=== PATIENT | female | born 1970 | race Caucasian/White ===

== ENCOUNTER 2025-05-27 16:04 | Emergency (ER) | payer OTHER ==
[~2025-05-27] VITALS: Ht 165.1 cm; Wt 64.4 kg
--- OUTSIDE RECORDS SUMMARY | 2025-05-27 16:30 | XMS ---
PreManage Notification: CEASAR QUINTANA Security Rn Building Events No recent Security Events currently on file CRITERIA MET - REBECCAP CARE PROVIDERS KHADAR PAIZ Nurse Practitioner: Family Current PHONE: [phone] [place] has no Care Guidelines for this patient. [place] VISIT COUNT (12 MO.) 1 TOAN Costello TOTAL 1 NOTE: Visits indicate total known visits. ED/UCC VISIT TRACKING (12 MO.) 05/27/2025 16:05 TOAN Fernandez OR TYPE: Emergency COMPLAINT: - HEADACHE INPATIENT VISIT TRACKING (12 MO.) No inpatient visits to display in this time frame [email or web address]
[2025-05-27] MEDS ORDERED: CLONAZEPAM0.5 MG PO (17:40)
[2025-05-27] MEDS ORDERED: BUSPIRONE HCL15 MG PO (17:40)
[2025-05-27] MEDS ORDERED: PROGESTERONE100 MG PO (17:40)
[2025-05-27] MEDS ORDERED: ESTRADIOL10 MCG VG (17:41)
[2025-05-27] MEDS ORDERED: SUMATRIPTAN SUC50 MG PO (17:41)
[2025-05-27 18:55] LABS: BASOPHILS 0.4 % (0.1-1.2); EOSINOPHILS 0.3 % (0.7-5.8); LYMPHOCYTES 19.9 % (19.3-51.7); MCH 28.4 PG (25.6-32.2); MCHC 32.4 g/dL (32.2-35.5); MCV 87.6 fL (79.4-94.8); MONOCYTES 4.8 % (4.7-12.5); NEUTROPHILS 74.4 % (34.0-71.1); RBC 4.29 M/uL (3.93-5.22)
[2025-05-27] MEDS ORDERED: KETOROLAC TROMETHAMINE 15 MG/ML VIAL IV ONE (19:00)
[2025-05-27] MEDS ORDERED: METOCLOPRAMIDE HCL 10 MG/2 ML SDV IV ONE (19:00)
[2025-05-27] MEDS ORDERED: SODIUM CHLORIDE 0.9% 1,000 ML IV ONE (19:00)
[2025-05-27 19:05] LABS: ALT (SGPT) 16.0 U/L (14-59); AST (SGOT) 10.0 U/L (15-37); GLOMERULAR FILTRATION RATE,EST 95.0 mL/min (>60); PROTEIN, TOTAL 6.3 g/dL (6.4-8.2); UREA NITROGEN 12.0 mg/dL (7-18)
[2025-05-27] MEDS ORDERED: REGLAN10 MG PO (19:29)
[2025-05-28 02:25] VITALS: BP 120/59
== END 2025-05-27 23:36 | disposition home or self-care (01) ==
LOC: ED 16:04
PROVIDERS: Emergency Medicine
DX: G43.909 Migraine, unspecified, not intractable, without status migrainosus (principal); Z79.899 Other long term (current) drug therapy
CPT/HCPCS: 36415; 80053; 85025; 96361; 96372; 96374; 96375; 99283-25; J1200; J1885; J2765; J3030; J7030